=== PATIENT | male | born 1995 | race Caucasian/White ===

== ENCOUNTER 2024-06-16 20:09 | Inpatient (IN) | payer OTHER, SELFPAY ==
[2024-06-16] VITALS (9 sets, daily range): BP systolic 135–181; BP diastolic 84–131; BMI 20.7; BMI 21.3
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
[2024-06-16] MEDS: SUBUTEX 8 MG SL (16:31)
[2024-06-16 16:32] LABS: % Basophils 0.3 % (0-2); % Eosinophils 0.1 % (0-6); % Immature Granulocytes 0.4 % (0-0.5); % Lymphocytes 11.2 % (20.5-51.1); % Monocytes 3.6 % (1.7-9.3); % Neutrophils 84.4 % (42.2-75.2); Absolute Immature Granulocytes 0.1 10^3/uL (0-0.05); Absolute Lymphocytes 1.3 10^3/uL (1.2-3.4); Absolute Monocytes 0.4 10^3/uL (0.1-0.6); Absolute Neutrophils 9.7 10^3/uL (1.4-6.5); Hematocrit 38.9 % (39.0-52.0); Hemoglobin 13.2 g/dL (13.0-18.0); Mean Corp Hgb Conc. 33.9 g/dL (33.0-37.0); Mean Corpuscular Hgb 28.4 pg (27.0-31.0); Mean Corpuscular Volume 83.7 fL (80.0-94.0); Mean Platelet Volume 8.7 fL (7.4-10.4); Nucleated Red Blood Cells % 0 % (-); Platelet Count 357 10^3/uL (130-400); Red Blood Cell Count 4.65 10^6/uL (4.70-6.10); Red Cell Dist. Width 13.8 % (11.5-14.5); White Blood Cell Count 11.5 10^3/uL (4.8-10.8)
[2024-06-16 16:41] LABS: ALT (SGPT) 49 U/L (0-50); AST (SGOT) 32 U/L (17-59); Albumin 4.9 g/dl (3.5-5.0); Alkaline Phosphatase 103 U/L (38-126); Blood Urea Nitrogen 16 mg/dl (9-20); Calcium 9.7 mg/dl (8.4-10.2); Carbon Dioxide 25 mmol/L (22-30); Chloride 106 mmol/L (98-107); Erythrocyte Sed Rate 12 mm/hour (0-20); Estimated Creatinine Clearance > 125 ml/min; Glucose 94 mg/dl (70-99); Sodium 142 mmol/L (135-145); Total Bilirubin 0.7 mg/dl (0.2-1.3); Total Protein 7.9 g/dl (6.3-8.2); eGFR > 60.00
[2024-06-16] MEDS: NSS 1000 IV (17:03)
[2024-06-16] MEDS: ZOFRAN 4 MG IV (17:04)
[2024-06-16] MEDS: ATIVAN 1 MG IV (17:04)
[2024-06-16 17:08] LABS: Lactic Acid 1.9 mmol/L (0.7-2.0)
[2024-06-16 17:11] LABS: C-Reactive Protein < 5.00 mg/L (0.0-10.00)
[2024-06-16 17:22] LABS: Procalcitonin < 0.05 ng/ml (0.0-0.25)
[2024-06-16] MEDS: ANCEF 5 IV (18:33)
[2024-06-16] MEDS: APRESOLINE 10 MG IV (18:34)
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
--- NOTE | 2024-06-16 19:36 | W.PN.UPDATE ---
Addendum entered and electronically signed by Ute Dominique MD 06/16/24 22:26:
Patient with daily alcohol use but no alcohol in 3 days. Alcohol withdrawal protocol started.
Original Note:
Update Note
Progress Note Update
This is an addendum to H&P written by Monica Sharpe on 06/16/2024. Patient seen and examined independently with SWAT TEAM MEMBER.
28-year-old male past medical history of IV drug abuse with heroin, snorting fentanyl and meth, presenting from [facility] for elevated blood pressure and redness and swelling of the left hand with abrasion as well as the right hand.
Patient having some chest pain which could be from vomiting. Ongoing cough.
Patient shivering and had an episode of vomiting.
Blood pressure 170s-180s.
Labs show leukocytosis. Hand x-ray shows no acute osseous abnormality.
Patient actively undergoing opiate withdrawal.
Patient with mottling of the hands secondary to puffy hand syndrome from IV drug use. Doubt cellulitis but will continue cefazolin for now. Patient with hypertensive urgency.
Check blood cultures. IV fluids. Cefazolin.
Opiate withdrawal protocol with buprenorphine with as needed clonidine. As needed hydralazine. Check UDS.
Check EKG and chest x-ray. IV Protonix. Zofran.
[2024-06-16 20:20] LABS: COVID-19 Antigen Negative (Negative)
[2024-06-16] MEDS: ZOFRAN 4 MG IM (20:46)
[2024-06-16 21:13] LABS: Amphetamines Positive (Negative); Barbiturates Negative (Negative); Benzodiazepines Positive (Negative); Buprenorphine Positive (Negative); Cocaine Negative (Negative); Marijuana Positive (Negative); Methadone Negative (Negative); Methamphetamines Positive (Negative); Opiates Negative (Negative); Phencyclidine Negative (Negative); Tricyclic Antidepressants Negative (Negative)
[2024-06-16 21:36] LABS: Fentanyl, Urine Positive (Negative)
[2024-06-16] MEDS: HEPARIN SC (22:12)
[2024-06-16] MEDS: ATIVAN 2 MG SL (22:13)
--- NOTE | 2024-06-16 22:15 | PTCARENOTE ---
Received verbal report from CYNDI Corcoran. Notified that pt does not have IV access. This RN paged IV team prior to pt's arrival to floor. Pt arrived to floor via stretcher with RN and two officers. Pt aaox3, restless, tremulous and diaphoretic. COWS
28. Pt stated last night was the last time he used. Pt states that he drinks 'as often and as much as I can get,' per pt his last drink was 3 days ago. NSR on monitor. 98% on RA. VS and assessment as documented. IV team came to bedside and pt
refused IV. Pt stated 'I just want to suffer.' Mala, DURALUMIN METALWORKER made aware of pt's COWS, alcohol use, and refusal of an IV. Pt does not have any IV access at this time. SL Ativan Rx'd and administered (see MAR).
--- NOTE | 2024-06-16 22:23 | W.PN.UPDATE ---
Addendum entered and electronically signed by ELIU Gibbs 06/17/24 02:58:
after much coaxing pt agreeable to iv placement. one obtained in foot and one in antecubital area. Will hold off on ordered ivf due to fear of losing one of these sites as pt with extremely poor venous access. May require midline or PICC
Original Note:
Update Note
Progress Note Update
Pt admitted for opioid withdrawal last used yesterday melissa. PT in active withdrawal (nausea,vomiting, htn) COWS score >28
Will start the microinduction of buprenorphine protocol- reviewed with pharmacy.
Pt REFUSING IV access despite education on why it is important he have one. Still refuses at this time. Will attempt to make meds SL/IM or po as able.
Told RN that he usually does drink ETOH daily but has not has any in 3 days. Will start ETOH w/d protocol as well.
[2024-06-16 22:47] LABS: Alcohol None Detected
[2024-06-17] VITALS (14 sets, daily range): BP systolic 122–188; BP diastolic 66–113; BMI 21.3
[2024-06-17] MEDS: TYLENOL PO (00:05)
[2024-06-17] MEDS: OXYCONTIN (CONTROLLED RELEASE) PO (00:05)
[2024-06-17] MEDS: BELBUCA 300 MCG BUCCAL ×5 (00:12→16:16)
[2024-06-17] MEDS: ATIVAN 1 MG IV (00:12)
[2024-06-17 00:14] LABS: Alcohol None Detected
--- NOTE | 2024-06-17 01:27 | PTCARENOTE ---
This RN educated pt on importance of having an IV access. Pt agreeable to IV access. IV team paged and assessed pt at bedside. CYNDI Duncan nursing dive supervisor came to bedside as well. Vein found in pt's right ankle. YADIRA Medeiros notified and Rx entered
for permission to insert IV in that location. IV inserted in pt's right ankle by CYNDI Duncan. MSAS 8, PRN IV Ativan administered (see MAR).
[2024-06-17] MEDS: ANCEF 5 IV ×3 (01:44→17:28)
[2024-06-17] MEDS: APRESOLINE 10 MG IV ×2 (03:51→12:47)
--- NOTE | 2024-06-17 04:00 | PTCARENOTE ---
Pt's bp 188/100, hr 94. Notified YADIRA Medeiros and received Rx for IV Hydralazine. Medication administered (see MAR).
[2024-06-17] MEDS: ZOFRAN 4 MG IV ×2 (04:01→17:28)
[2024-06-17] MEDS: ATIVAN 2 MG IV (04:17)
[2024-06-17] MEDS: TIGAN 200 MG IM (05:26)
[2024-06-17] MEDS: LOPRESSOR 5 MG IV (05:52)
--- NOTE | 2024-06-17 08:10 | W.PN.HOSP.TC ---
Addendum entered and electronically signed by Moreno Jimenez MD 06/17/24 20:41:
Attending Addendum:
I saw and evaluated the patient. I reviewed the resident�s note and agree with findings and plan as documented in the resident�s note. Sub: Feels tremulous. Denies CP fevrs chills. Denies SI or HI. Seen with officers present. Full 12 point ROS
reviewed and negative except as documented Exam: Vitals reviewed in chart GEN-mild distress with W/D heart tachycardic lungs clear abd soft LE no edema b/l hand swollen
#Opioid Withdrawal
#Hypertensive Urgency
- Started on Microinduction protocol overnight with improvement
- Patient remained hemodynamically stable, not intubated, not requiring pressors
- no imminent threat to life
- c/w buprenorphine microdosing on DC confirmed with long-term he is able to continue there
#BL Hand swelling, most likely Puffy hand syndrome of IVDA vs. cellulitis
- Blood Cx pending, MRSA nares pending, started on IV Cefepime
- Hand XR showing no acute osseous abnormality
- will continue for 7d treatment of cellulitis
#h/o Polysubstance use (THC, Fentanyl, Suboxone, Methamphetamines)
- UTox + for the above, as well as Benzos
#Alcohol Withdrawal
#H/o Daily EtOH use
- no former history of withdrawal seizures
- CIWA protocol
- requiring multiple doses of Ativan, switched to Phenobarb taper for DC
DVT Ppx: SC Heparin
Code Status: Full Code
Dispo DC to [facility] today
Time spent coordinating care, DC planning, review of DC plan of care with resident, transition of care, review of records, med rec/scripts sent electronically, consults, notes, d/w consultants, nursing, , and CM� 35mins
Original Note:
Today's Communication/Plan
-
medically stable for d/c
Will send him on Phenobarb taper, augmentin x7d, Clonidine, Buprenorphine microinduction
Assessment / Plan
Assessment / Plan
28 year old male presenting [facility] with hypertension, vomiting and polysubstance withdrawal
#Opioid Withdrawal
#Hypertensive Urgency
- in active withdrawal with vomiting, tachycardia, hypertension, tremors -- last use 06/15/24
- Started on Microinduction protocol overnight with improvement
- Patient remained hemodynamically stable, not intubated, not requiring pressors
- IV metoprolol/Hydralazine, Clonidine
- c/w buprenorphine microdosing
#BL Hand swelling, most likely Puffy hand syndrome of IVDA vs. cellulitis
- Blood Cx pending, MRSA nares pending, started on IV Cefepime
- Hand XR showing no acute osseous abnormality
- will continue for 7d treatment of cellulitis
#h/o Polysubstance use (THC, Fentanyl, Suboxone, Methamphetamines)
- UTox + for the above, as well as Benzos
#Alcohol Withdrawal
#H/o Daily EtOH use
- no former history of withdrawal seizures
- CIWA protocol
- requiring multiple doses of Ativan, switched to Phenobarb taper
DVT Ppx: SC Heparin
Diet: NPO
Code Status: Full Code
Anticipated Discharge: Today
Subjective/Interval History
-
Date of Service: June 17, 2024
Overnight he had 3 vomiting episodes which did not respond to Zofran alone and required Tigan. He required 4 doses of Ativan. He required hydralazine and Lopressor to control blood pressure. He initially refused IV access citing fear of needles,
then was agreeable to an ankle/L AC line.
Objective Data
-
Labs:
Laboratory Results
06/17/24
06:00
WBC Pending
Hgb Pending
Hct Pending
Plt Count Pending
PT Pending
INR Pending
APTT Pending
Sodium Pending
Potassium Pending
Chloride Pending
Carbon Dioxide Pending
BUN Pending
Creatinine Pending
Glucose Pending
Calcium Pending
Total Bilirubin Pending
AST Pending
ALT Pending
Alkaline Phosphatase Pending
Vital Signs:
Vital Signs
Temp Pulse Resp BP Pulse Ox
99.1 F 87 20 181/98 99
06/17/24 05:28 06/17/24 05:52 06/17/24 05:27 06/17/24 05:52 06/17/24 05:27
I&O
06/16/24 06/17/24 06/18/24
06:59 06:59 06:59
Intake Total 480 / 480
Balance 480 / 480
Review of Systems
-
History Source: Patient
Constitutional: Reports Chills; Denies Fever
EENT: Reports No Symptoms Reported
Respiratory: Reports No Symptoms; Denies Cough or Trouble Breathing
Cardiac: Reports Chest Pain
Abdomen/GI: Reports Abdominal Pain and Nausea; Denies Vomiting or Diarrhea
Breast: Reports N/A
Genitourinary: Reports No Symptoms
Musculoskeletal: Reports No Symptoms
Skin: Reports No Symptoms
Neuro: Reports Tremors; Denies Seizures
Physical Exam
-
General: No Apparent Distress and Appears Chronically Ill
HEENT: Normocephalic, Atraumatic, Moist Mucous Membranes, Anicteric, [place] Conjunctivae and Other (dilated pupils)
Respiratory: Clear to Auscultation; Negative Wheezes, Rales or Rhonchi
Cardiac: S1/S2 and Irregular Rhythm; Negative Murmur or Tachycardic
GI: Soft, Nondistended, Normal Bowel Sounds and Tender
Genito-urinary: Deferred by me
Musculoskeletal: No Clubbing, No Cyanosis, No Edema and Other (BL hand edema. L hand was warm, R hand was cool. BL LE healed ulcerated lesions consistent with IVDA. )
Skin: Warm, Dry, Ulcers and IV Access / Catheter Site (L AC and R ankle.)
Neuro: Awake, Alert and Oriented
[2024-06-17 10:02] LABS: % Basophils 0.2 % (0-2); % Immature Granulocytes 0.4 % (0-0.5); % Lymphocytes 10.6 % (20.5-51.1); % Monocytes 6.4 % (1.7-9.3); % Neutrophils 82.4 % (42.2-75.2); Absolute Immature Granulocytes 0.1 10^3/uL (0-0.05); Absolute Lymphocytes 1.8 10^3/uL (1.2-3.4); Absolute Monocytes 1.1 10^3/uL (0.1-0.6); Absolute Neutrophils 13.6 10^3/uL (1.4-6.5); Hematocrit 38.4 % (39.0-52.0); Mean Corp Hgb Conc. 33.9 g/dL (33.0-37.0); Mean Corpuscular Hgb 28.4 pg (27.0-31.0); Mean Corpuscular Volume 83.8 fL (80.0-94.0); Nucleated Red Blood Cells % 0 % (-); Platelet Count 388 10^3/uL (130-400); Red Blood Cell Count 4.58 10^6/uL (4.70-6.10); Red Cell Dist. Width 14.1 % (11.5-14.5); White Blood Cell Count 16.5 10^3/uL (4.8-10.8)
[2024-06-17 10:10] LABS: INR 1.11; PT 14.6 Sec (11.4-14.6)
[2024-06-17 10:11] LABS: APTT 28.7 Sec (23.4-35.0)
[2024-06-17 10:18] LABS: ALT (SGPT) 36 U/L (0-50); AST (SGOT) 28 U/L (17-59); Albumin 3.9 g/dl (3.5-5.0); Alkaline Phosphatase 84 U/L (38-126); Blood Urea Nitrogen 13 mg/dl (9-20); Calcium 9.2 mg/dl (8.4-10.2); Carbon Dioxide 23 mmol/L (22-30); Chloride 106 mmol/L (98-107); Direct Bilirubin 0.2 mg/dl (0.0-0.4); Estimated Creatinine Clearance > 125 ml/min; GGTP 19 U/L (15-73); Glucose 107 mg/dl (70-99); Magnesium 1.9 mg/dl (1.6-2.3); Phosphorus 3.6 mg/dl (2.5-4.5); Potassium 3.7 mmol/L (3.5-5.1); Sodium 140 mmol/L (135-145); Total Bilirubin 0.9 mg/dl (0.2-1.3); Total Protein 6.8 g/dl (6.3-8.2); eGFR > 60.00
[2024-06-17] MEDS: THIAMINE INJECTION 200 MG IV (10:25)
[2024-06-17] MEDS: HEPARIN 5000 UNITS SC (10:25)
[2024-06-17] MEDS: PROTONIX IV 40 MG IV (10:26)
[2024-06-17] MEDS: TYLENOL 1000 MG PO ×2 (10:26→16:17)
[2024-06-17] MEDS: NSS (PRESERVATIVE FREE) 10 ML IV (10:26)
[2024-06-17] MEDS: FOLVITE 1 MG PO (10:27)
[2024-06-17] MEDS: OXYCONTIN (CONTROLLED RELEASE) 40 MG PO ×2 (10:27→16:17)
[2024-06-17] MEDS: ATIVAN 1 MG PO ×3 (10:33→16:20)
[2024-06-17] MEDS: ZANAFLEX 2 MG PO (13:28)
[2024-06-17] MEDS: PHENOBARBITAL 104 MG IV (14:37)
--- NOTE | 2024-06-17 16:34 | CM ---
Patient from [facility] with guards with Hx h/o Polysubstance use with Dx Opioid Withdrawal, Hypertensive Urgency, BL Hand swelling. Tox screen positive.
Substance Abuse Consult:
Spoke with [facility]; they will do a 10 day detox with meds for patients with substance abuse. They have programs for D/A rehab at the detention. The ph for report [phone], fax [phone].
[facility]; [facility] if [facility] can provide detox/rehab.
Plan return to [facility] with guards when medically ready.
[2024-06-17] MEDS: CATAPRES 0.2 MG PO (17:28)
--- NOTE | 2024-06-17 18:55 | W.DCSUMMARY ---
Addendum entered and electronically signed by Moreno Jimenez MD 06/17/24 20:43:
Read, reviewed, and agree. See same day progress note for additional details. Written scripts provied for phenobarb taper and suboxone microdosing taper. Supervised by medical staff at facility.
Chandana Jimenez MD
Original Note:
Documented by User: Jamal Saez MD, Resident 06/17/24 19:05
Discharge Summary
Discharge Data
Date of Admission: 06/16/24
Date of Discharge: 06/17/24
Total time spent discharging patient (in min): >30m
-
Pending Results: Yes
Additional Pending Results:
MRSA Screen (nasal swab)
Hospital Course
Discharging Physician : Dr. Jamal Saez, Dr. Moreno Jimenez
Disposition : [facility]
Primary care physician : [facility]
Principal Discharge diagnosis : Opioid Withdrawal, Alcohol Withdrawal, Hypertensive Urgency, Cellulitis
Chronic Discharge diagnosis : Polysubstance Use
Hospital Course :
28 year old male presenting from [facility] with hypertension, vomiting and polysubstance withdrawal
#Opioid Withdrawal
#Hypertensive Urgency
- in active withdrawal with vomiting, tachycardia, hypertension, tremors -- last use 06/15/24
- Started on Microinduction of Buprenorphine protocol
- Patient remained hemodynamically stable, was not intubated, did not require pressors
- Given IV metoprolol/Hydralazine, PO Clonidine
- sent to [facility] with Rx for Buprenorphine microdosing, and Clonidine for withdrawal symptoms
#BL Hand swelling, most likely Puffy hand syndrome of IVDA vs. cellulitis
- Blood Cx NGx24 hours, MRSA nares pending, started on IV Cefepime
- Hand XR showing no acute osseous abnormality
- D/c to [facility] with 7d course of Augmentin for Cellulitis
#h/o Polysubstance use (THC, Fentanyl, Suboxone, Methamphetamines)
- UTox + for the above, as well as Benzos
- withdrawal protocol as above
#Alcohol Withdrawal
#H/o Daily EtOH use
- no former history of withdrawal seizures
- CIWA protocol, requiring multiple doses of Ativan, switched to Phenobarb taper
- D/c to [facility] on PO Phenobarbital Taper
Important imaging findings :
CR Hand - Left Min 3 Views:
No acute osseous abnormality.
CR Chest Portable:
No acute cardiopulmonary abnormality.
Procedure findings :
None.
Discharge Plan
-
Patient Disposition: Intermediate
Discharge Diagnosis/Procedures: Opioid Withdrawal
Alcohol Withdrawal
Cellulitis
Condition: Good
Diet: As tolerated
Activity: As tolerated
Driving Restrictions: As prior to admission
Bathing Restrictions: None
Activity Restrictions/Additional Instructions:
FIT FOR INCARCERATION
Referrals:
[facility] [Family Provider] -
Additional Discharge Medication Instructions: Day 1: Buprenorphine 300mcg buccal Q4H x6 doses
Day 2: Buprenorphine 2mg SL Q6H x4 doses
Day 3: Buprenorphine 4mg SL Q6H x4 doses
Day 4: Buprenorphine 8mg SL Q12H x2 doses
Day 5 and beyond: Buprenorphine 16mg SL once daily
Give Clonidine 0.2mg Q6H. Hold for HR < 60 bpm, SBP < 110 mmHg, or DBP < 60mmHg until no longer in withdrawal
Start Phenobarbital 97.2mg PO TID x6 doses, then
Phenobarbital 64.8mg PO TID x6 doses, then
Phenobarbital 32.4mg PO TID x6 doses, then stop.
Augmentin 875-125 PO BID x7d
Prescriptions:
New
clonidine HCl 0.2 mg tablet
0.2 mg PO Q6H 10 Days Qty: 40 0RF
Rx Instructions:
Hold for HR < 60 bpm, SBP < 110 mmHg, or DBP < 60 mmHg.
amoxicillin-pot clavulanate 875-125 mg tablet
1 tab PO BID 7 Days Qty: 14 0RF
phenobarbital 97.2 mg tablet
97.2 mg PO TID Qty: 6 0RF
phenobarbital 64.8 mg tablet
64.8 mg PO TID Qty: 6 0RF
phenobarbital 32.4 mg tablet
32.4 mg PO TID Qty: 6 0RF
buprenorphine HCl 2 mg tablet, sublingual
2 mg sublingual Q6H Qty: 4 0RF
Rx Instructions:
Buprenorphine 2mg SL Q6H x4 doses
buprenorphine HCl 2 mg tablet, sublingual
4 mg sublingual Q6H Qty: 8 0RF
Rx Instructions:
Buprenorphine 4mg SL Q6H x4 doses
buprenorphine HCl 8 mg tablet, sublingual
8 mg sublingual Q12H Qty: 2 0RF
Rx Instructions:
Buprenorphine 8mg SL Q12H x2 doses
buprenorphine HCl 8 mg tablet, sublingual
16 mg sublingual DAILY 90 Days Qty: 180 0RF
buprenorphine HCl 300 mcg film
300 mcg buccal Q4H Qty: 6 0RF
Rx Instructions:
buprenorphine 300mcg buccal Q4H x6 doses
Discharge Orders:
Discharge Patient (As Directed); Ordered 06/17/24
Ordered By: Jamal Saez
Discharge Date and Time
Discharge Date/Time: 06/17/24 18:10
Print Language: NIGERIAN

Documented by User: Moreno Jimenez MD 06/17/24 20:37
Discharge Summary
Discharge Data
Date of Admission: 06/16/24
Date of Discharge: 06/17/24
Discharge Plan
-
Patient Disposition: Intermediate
Discharge Diagnosis/Procedures: Opioid Withdrawal
Alcohol Withdrawal
Cellulitis
Condition: Good
Diet: As tolerated
Activity: As tolerated
Driving Restrictions: As prior to admission
Bathing Restrictions: None
Activity Restrictions/Additional Instructions:
FIT FOR INCARCERATION
Referrals:
[facility] [Family Provider] -
Additional Discharge Medication Instructions: Day 1: Buprenorphine 300mcg buccal Q4H x6 doses
Day 2: Buprenorphine 2mg SL Q6H x4 doses
Day 3: Buprenorphine 4mg SL Q6H x4 doses
Day 4: Buprenorphine 8mg SL Q12H x2 doses
Day 5 and beyond: Buprenorphine 16mg SL once daily
Give Clonidine 0.2mg Q6H. Hold for HR < 60 bpm, SBP < 110 mmHg, or DBP < 60mmHg until no longer in withdrawal
Start Phenobarbital 97.2mg PO TID x6 doses, then
Phenobarbital 64.8mg PO TID x6 doses, then
Phenobarbital 32.4mg PO TID x6 doses, then stop.
Augmentin 875-125 PO BID x7d
Prescriptions:
New
clonidine HCl 0.2 mg tablet
0.2 mg PO Q6H 10 Days Qty: 40 0RF
Rx Instructions:
Hold for HR < 60 bpm, SBP < 110 mmHg, or DBP < 60 mmHg.
amoxicillin-pot clavulanate 875-125 mg tablet
1 tab PO BID 7 Days Qty: 14 0RF
phenobarbital 97.2 mg tablet
97.2 mg PO TID Qty: 6 0RF
phenobarbital 64.8 mg tablet
64.8 mg PO TID Qty: 6 0RF
phenobarbital 32.4 mg tablet
32.4 mg PO TID Qty: 6 0RF
buprenorphine HCl 2 mg tablet, sublingual
2 mg sublingual Q6H Qty: 4 0RF
Rx Instructions:
Buprenorphine 2mg SL Q6H x4 doses
buprenorphine HCl 2 mg tablet, sublingual
4 mg sublingual Q6H Qty: 8 0RF
Rx Instructions:
Buprenorphine 4mg SL Q6H x4 doses
buprenorphine HCl 8 mg tablet, sublingual
8 mg sublingual Q12H Qty: 2 0RF
Rx Instructions:
Buprenorphine 8mg SL Q12H x2 doses
buprenorphine HCl 8 mg tablet, sublingual
16 mg sublingual DAILY 90 Days Qty: 180 0RF
buprenorphine HCl 300 mcg film
300 mcg buccal Q4H Qty: 6 0RF
Rx Instructions:
buprenorphine 300mcg buccal Q4H x6 doses
Discharge Orders:
Discharge Patient (As Directed); Ordered 06/17/24
Ordered By: Jamal Saez
Discharge Date and Time
Discharge Date/Time: 06/17/24 18:10
Print Language: NIGERIAN
== END 2024-06-17 18:10 | DRG 897 ==
LOC: IMU 20:09
PROVIDERS: Clinical Nurse Specialist Family Health; Nurse Practitioner Family; ADMITTING PHYSICIAN Hospitalist; ATTENDING PHYSICIAN Family Medicine; EMERGENCY PHYSICIAN Emergency Medicine
DX: F11.23 Opioid dependence with withdrawal (principal); L03.114 Cellulitis of left upper limb; L03.113 Cellulitis of right upper limb; F10.939 Alcohol use, unspecified with withdrawal, unspecified; I16.0 Hypertensive urgency; F17.210 Nicotine dependence, cigarettes, uncomplicated; S60.512A Abrasion of left hand, initial encounter; X58.XXXA Exposure to other specified factors, initial encounter
CPT/HCPCS: 71045; 73130; 80053; 80306; 80307; 82077; 82248; 82977; 83605; 83735; 84100; 84145; 85025; 85610; 85652; 85730; 86140; 87040; 87070; 87502; 87811; 93005; 96361; 96374; 96375; 99285; 99406